=== PATIENT | male | born 1930 | race Two or more races ===

== ENCOUNTER 2018-03-05 11:30 | Outpatient (CLI) | payer OTHER | END 2018-03-05 11:56 | disposition home or self-care (01) | LOC: SONOGRAMA 11:30 | DX: E04.2 Nontoxic multinodular goiter (principal) ==

== ENCOUNTER 2019-01-21 11:26 | Outpatient (CLI) | payer OTHER | END 2019-01-21 11:28 | disposition home or self-care (01) | LOC: SONOGRAMA 11:26 | DX: R59.0 Localized enlarged lymph nodes (principal) ==